=== PATIENT | female | born 1955 | race Caucasian/White ===

== ENCOUNTER → 2021-01-07 | Outpatient (CLI) | payer OTHER | LOC: US 09:08 | PROVIDERS: ATTEND Otolaryngology | DX: E04.2 Nontoxic multinodular goiter (principal) | CPT/HCPCS: 10005; 88112; 88172; 88173 ==

== ENCOUNTER → 2022-01-18 | Outpatient (CLI) | payer OTHER | LOC: US 08:57 | PROVIDERS: ATTEND Otolaryngology | DX: E04.2 Nontoxic multinodular goiter (principal) | CPT/HCPCS: 76536 ==

== ENCOUNTER 2022-02-10 16:16 | Emergency (ER) | payer OTHER ==
[~2022-02-10] VITALS: Ht 160 cm; Wt 62.8 kg
[2022-02-10] MEDS ORDERED: CRESTOR10 MG PO (16:33)
[2022-02-10] MEDS ORDERED: BUPROPION HCL75 MG PO (16:33)
[2022-02-10] MEDS ORDERED: AMITRIPTYLINE H10 MG PO (16:33)
[2022-02-10] MEDS ORDERED: KETOROLAC TROMETHAMINE 60 MG/2 ML VIAL IM ONE (16:45)
[2022-02-10] MEDS ORDERED: KETOROLAC TROMETHAMINE 30 MG/ML VIAL ONE (16:54)
[2022-02-10] MEDS ORDERED: IBUPROFEN600 MG PO (18:09)
== END 2022-02-10 18:14 | disposition home or self-care (01) ==
LOC: FSED 16:22
DX: S52.591A Other fractures of lower end of right radius, initial encounter for closed fracture (principal); W01.0XXA Fall on same level from slipping, tripping and stumbling without subsequent striking against object, initial encounter; Y93.01 Activity, walking, marching and hiking; Y92.89 Other specified places as the place of occurrence of the external cause; F32.A Depression, unspecified
CPT/HCPCS: 29125; 73110; 73130; 96372; 99284; J1885